=== PATIENT | female | born 1985 | race Caucasian/White ===

== ENCOUNTER 2020-07-29 12:01 | Emergency (ER) | payer BC ==
[~2020-07-29] VITALS: Ht 165.1 cm; Wt 57.9 kg
[2020-07-29] MEDS ORDERED: ONDANSETRON PF 4 MG/2 ML VIAL. IVP ONE (12:45)
[2020-07-29] MEDS ORDERED: KETOROLAC 30 MG/ML VIAL. IVP ONE (12:45)
[2020-07-29] MEDS ORDERED: IV NORMAL SALINE 1,000ML 1,000 ML IV ONE (12:45)
--- NOTE | 2020-07-29 13:04 | PHYS DOC ---
Past History Past Medical History: Alcoholism, Depression, Diverticulitis, Hepatitis, UTI (JOYCELYN FOWLER APRN) Past Surgical History: (JOYCELYN FOWLER APRN) Alcohol Use: Sober Social History Narrative: IV METHAMPHETAMINE IN PAST-OUT OF REHAB X 60 DAYS WO USE (JANETHJOYCELYN Mancilla APRN) Adult General Chief Complaint Chief Complaint: ABDOMINAL PAIN HPI HPI Patient is a 35-year-old female who presents to the emergency department reporting 3 days ago she started to feel constipated, has not had a bowel movement in 4 days, states she usually goes every day. Patient states she started having lower left and lower right pelvic pains with vaginal discharge 3 days ago that is malodorous and pinkish in color reporting she just finished her menstrual cycle normal duration of flow 3 days ago as well. Patient denies STI concerns reporting monogamous sexual relationship however does have unprotected sex. Patient reports the last time she had a discharge like this she was treated for chlamydia. Patient denies vaginal itching or sores to her vagina or periarea. Patient also states she has a history of diverticulitis, was admitted to [facility] on December 2019 in which she also was diagnosed with a abscess between her colon and her ovary and had a surgical repair with a drain. Patient reports she sees a GI specialist at but cannot recall his name, had a colonoscopy scheduled but had to miss her appointment related to inpatient drug rehab in which she spent 18 days at [facility] and rehab in [facility] for IV meth abuse. Patient reports her last IV meth use was 60 days ago. Patient states she has been clean since then. Patient patient reports she smokes cigarettes, states she used to drink alcohol but has been dry for the past 60 days. Patient reports her abdomen pain a constant 8 out of 10 that increases when she moves around or sits up or ambulates. Patient describes her pain as a stabbing achy pain that throbs most of the time. Patient denies nausea, however reported vomiting times once because of her severe pain yesterday. Patient denies any nausea or vomiting since yesterday. Patient denies chest pains, shortness of breath, recent fever or chills, chest congestion or nasal congestion. Patient denies any increased thirst or increased urination. Patient reports an allergy to codeine, states her only prescription medication is Zoloft. Patient states she has not taken any [id number] pain medications for this exacerbation of pain 3 days ago. Patient denies any other physical complaints or physical concerns. (JOYCELYN FOWLER APRN) Review of Systems Review of Systems 14 body systems of review of systems have been reviewed. See HPI for pertinent positives and negative responses, otherwise all other systems are negative, nonpertinent or noncontributory. (JOYCELYN FOWLER APRN) Current Medications Current Medications Current Medications Medications (Trade) Dose Ordered Sig/Ashu Start Time Stop Time Status Last Admin Dose Admin Ketorolac Tromethamine (Toradol 30mg Vial) 30 mg 1X ONCE 07/29/20 12:45 07/29/20 12:46 UNV 07/29/20 12:56 30 MG Ondansetron HCl (Zofran) 4 mg 1X ONCE 07/29/20 12:45 07/29/20 12:46 UNV 07/29/20 12:55 4 MG Sodium Chloride 1,000 ml @ 1,000 mls/hr 1X ONCE 07/29/20 12:45 07/29/20 13:44 UNV 07/29/20 12:53 1,000 MLS/HR (JOYCELYN FOWLER APRN) Allergies Allergies Allergies Coded Allergies Type Severity Reaction Last Updated Verified codeine Allergy Unknown 07/29/20 Yes (JOYCELYN FOWLER APRN) Physical Exam Physical Exam Constitutional: Well developed, well nourished, no acute distress, non-toxic appearance. 35-year-old female in no apparent distress. HENT: Normocephalic, atraumatic. Eyes: Conjunctiva normal, no discharge. Neck: Normal range of motion, no tenderness, supple, no stridor. No meningismus signs, no nuchal rigidity. Cardiovascular: No cyanosis appreciated, distal cap refill less than 2 seconds. Lungs & Thorax: Patient is in no respiratory distress, no audible adventitious lung sounds appreciated. Abdomen: Bowel sounds normal, soft, no masses, no pulsatile masses. Tenderness to palpation left and right lower pelvic area, negative McBurney's point tenderness, negative psoas sign, negative Victor sign. No areas of ecchymosis or skin color changes of the abdomen. No surgical scars appreciated. Skin: Warm, dry, no erythema, no rash. Back: No tenderness, no CVA tenderness. Extremities: No tenderness, no cyanosis, no clubbing, ROM intact, no edema. Neurologic: Alert and oriented X 3, normal motor function, normal sensory function, no focal deficits noted. Psychologic: Affect normal, judgement normal, mood normal. : Pelvic examination performed with female ED registered nurse escort at bedside, no rashes or lesions appreciated to the vagina or external vaginal area or pubic area, the pubic area is shaved, no excoriations appreciated. Speculum exam revealed thick grayish white-colored discharge, GC and Chlamydia cultures obtained, wet prep obtained, the vaginal vault was not erythematous or excoriated. Bimanual exam with cervical motion tenderness, right-sided adnexal tenderness with marked left-sided adnexal tenderness. Patient pushed herself away from bimanual exam when examining the left adnexal area. (JOYCELYN FOWLER APRN) Current Patient Data Vital Signs Vital Signs Date Time Temp Pulse Resp B/P (MAP) Pulse Ox O2 Delivery O2 Flow Rate FiO2 07/29/20 12:10 98.4 82 20 127/65 (85) 98 Room Air Lab Results Laboratory Tests Test 07/29/20 12:26 POC Urine HCG, Qualitative hcg negative (Negative) (JOYCELYN FOWLER APRN) EKG EKG [] (JOYCELYN FOWLER APRN) Radiology/Procedures Radiology/Procedures PATIENT: AMY COLEY MACCOUNT: [id number] : 1985 LOCATION: ER AGE: 35 SEX: F EXAM STATUS: REG ER ORD. PHYSICIAN: JOYCELYN FOWLER APRN REASON: Right and left-sided adnexal pain PROCEDURE: PELVIS COMPLETE US PELVIS COMPLETE: 07/29/2020 1:50 PM INDICATION: 35 years old Female. Right and left-sided adnexal pain. COMPARISON: None. TECHNIQUE: Transabdominal and transvaginal sonographic evaluation of the pelvis was performed. Grayscale, color Doppler and spectral waveform analysis were utilized. FINDINGS: UTERUS: Size: 12.4 x 6.6 x 2.7 cm. Masses: None. Endometrium: 5 mm. No suspicious vascularity is identified. IUD is present in appropriate position. RIGHT OVARY: 5.0 x 2.7 x 4.0 cm. Dominant follicle in the right ovary measures 3.4 cm. LEFT OVARY: 4.6 x 3.1 x 2.5 cm. There is a cyst with internal echoes measuring 2.4 cm the left ovary. No definite suspicious vascularity. Arterial and venous waveform are identified within the ovaries bilaterally at the time of imaging. FREE FLUID: None. URINARY BLADDER: Unremarkable. IMPRESSION: Perfusion is noted to the ovaries bilaterally at the time of imaging. Cyst in the left ovary with internal echoes measures 2.4 cm. In the absence of elevated beta hCG, consideration may be given for an endometrioma versus hemorrhagic cyst. 2-3 month follow-up pelvic ultrasound is recommended to ensure resolution. IUD is present. Electronically signed by: Blanca Mendoza MD (07/29/2020 2:23 PM) [id number] DICTATED AND SIGNED BY: BLANCA MENDOZA MD DATE: 07/29/20 1419 CC: JOYCELYN FOWLER APRN; KALANI MIDDLETON DO; AVELINA ANGELO DO ~MTH0 0 (JOYCELYN FOWLER APRN) Heart Score C/O Chest Pain: No Risk Factors: Risk Factors: DM, Current or recent (<one month) smoker, HTN, HLP, family history of CAD, obesity. Risk Scores: Risk Factors: DM, Current or recent (<one month) smoker, HTN, HLP, family history of CAD, obesity. (JOYCELYN FOWLER APRN) Course & Med Decision Making Course & Med Decision Making Pertinent Labs and Imaging studies reviewed. (See chart for details) 35-year-old female, vital signs reviewed, resents emergency department with complaints of low pelvic pain for the past 3 days. Physical examination concerning for bacterial vaginosis versus other STI, patient had right-sided adnexal tenderness with marked left-sided adnexal tenderness concerning for ovarian torsion and patient's reported history of surgical abscess of the left ovary, will order sonogram to rule out. Patient is nontoxic in appearance, low likelihood of diverticulitis. Will review labs pending decision on CT abdomen pelvis. Patient states she has been 60 days clean from methamphetamines and alcohol, there were no track lock appreciated to her arms however was a very difficult peripheral IV access, will order urine drug screen, CBC, BMP, lipase, urinalysis assay, urine test, saline lock, 1 L normal saline, 4 mg Zofran, 30 mg IV ketorolac. Pelvic sonogram concerning for ovarian cyst on the left, no concerns for ovarian torsion or other infectious process. Patient wet prep concerning for bacterial vaginosis, will treat with 500 mg p.o. Flagyl with Rx twice daily x7 days, with patient's history of STIs, will empirically treat with 500 mg Rocephin in the ED today, will send home with prescription for doxycycline hyclate twice daily x7 days, patient was not however her urine was infected, will treat with Keflex Rx 500 mg p.o. twice daily x7 days, patient did complain of constipation problems, will recommend MiraLAX [id number] for constipation. We will also give prescription for Diflucan 150 mg tablet if patient has symptoms of vaginal yeast infection after antibiotic regimens. Patient's urine drug screen positive for marijuana and methamphetamines, question patient about urine drug screen results, patient revealed that she did use IV methamphetamine yesterday and was caught by her boyfriend, offered patient help with methamphetamine abuse, patient states that her boyfriend has taken her to a drug rehab facility tomorrow. Discussed findings with patient, strict follow-up wit h primary care call Friday for appointment, patient states that she will follow- up with her primary care physician Dr. 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 Patient gave verbal understanding of discharge home instructions, follow-up with primary care physician call Friday for appointment, home prescription use, return ER precautions and concerns, patient was discharged home without incident. Diagnosis left ovarian cyst, bacterial vaginosis, sexually transmitted infections, urinary tract infection, methamphetamine abuse, history of alcohol abuse, constipation. (JOYCELYN FOWLER APRN) Course & Med Decision Making I oversaw on the above date of service of this patient and discussed the care with the GRAV[employer] SET UP OPERATOR. I agree with the findings, plan of care, and disposition as documented. Electronically signed, Kalani Middleton DO (KALANI MIDDLETON DO) Joseluis Disclaimer Dragon Disclaimer This electronic medical record was generated, in whole or in part, using a voice recognition dictation system. (JOYCELYN FOWLER APRN) Departure Departure: Impression: Primary Impression: Left ovarian cyst Additional Impressions: Sexually transmitted disease Bacterial vaginosis Constipation Methamphetamine abuse, episodic History of alcohol abuse Disposition: HOME / SELF CARE / HOMELESS Condition: GOOD Referrals: AVELINA ANGELO DO (PCP) Patient Instructions: Bacterial Vaginosis, Constipation, Adult, Ovarian Cyst, Sexually Transmitted Disease Additional Instructions: You were seen today in the emergency department for low pelvic pain. A sonogram was performed of your pelvis and revealed a ovarian cyst on the left, please follow-up with your primary care physician for reevaluation of your ongoing pelvic cyst. Your pelvic examination was concerning for sexually transmitted diseases, cultures were sent, I am empirically treating you for gonorrhea chlamydia, you received 500 mg Rocephin in the ED today, is very important that you fill the prescription for doxycycline and take it as directed, you also have bacterial vaginosis, please fill your prescription for Flagyl and take it as directed, you also have a urinary tract infection, please fill your prescription for Keflex and take it as directed. We discussed your constipation problems, you may use [id number] MiraLAX as directed for constipation. I am also prescribing you a 150 mg Diflucan tablet in the event you experience yeast infection symptoms. If you do not there is no need to fill and take this prescription. You had indicated that you had a relapse yesterday with methamphetamines, I offered you help with your methamphetamine abuse, you have i ndicated that your boyfriend is assisting you with taking you to a rehab place for help. I encourage you to seek substance abuse help. Please return to the emergency department for worsening symptoms or other concerns. EMERGENCY DEPARTMENT GENERAL DISCHARGE INSTRUCTIONS Thank you for coming to [facility] (ED) today and trusting us with you care. We trust that you had a positivie experience in our Emergency Department. If you wish to speak to the department management, you may call the director at [phone]. YOUR FOLLOW UP INSTRUCTIONS ARE FOLLOWS: 1. Do you have a private Doctor? If you do not have a private doctor, please ask for a resource list of physicians or clinics that may be able to assist you with follow up care. 2. The Emergency Physician has interpreted your x-rays. The X-Ray specialist will also review them. If there is a change in the findings, you will be notified in 48 hours when at all possible. 3. A lab test or culture has been done, your results will be reviewed and you will be notified if you need a change in treatment. ADDITIONAL INSTRUCTIONS AND INFORMATION: 1. Your care today has been supervised by a physician who is specially trained in emergency care. Many problems require more than one evaluation for a complete diagnosis and treatment. We recommend that you schedule your follow up appointment as recommended to ensure complete treatment of you illness or injury. If you are unable to obtain follow up care and continue to have a problem, or if your condition worsens, we recommend that you return to the ED. 2. We are not able to safely determine your condition over the phone nor are we able to give sound medical advice over the phone. For these safety reasons, if you call for medical advice we will ask you to come to the ED for further evaluation. 3. If you have any questions regarding these discharge instructions please call the ED at [phone]. SAFETY INFORMATION: In the interest of safety, wellness, and injury prevention; we encourage you to wear your sealbelt, if you smoke; quite smoking, and we encourage family to use a protective helmet for bicycling and other sporting events that present an increased risk for head injury. IF YOUR SYMPTOMS WORSEN OR NEW SYMPTOMS DEVELOP, OR YOU HAVE CONCERNS ABOUT YOUR CONDITION; OR IF YOUR CONDITION WORSENS WHILE YOU ARE WAITING FOR YOUR FOLLOW UP YESSI OINTMENT; EITHER CONTACT YOUR PRIMARY CARE DOCTOR, THE PHYSICIAN WHOSE NAME AND NUMBER YOU WERE GIVEN, OR RETURN TO THE ED IMMEDIATELY. Scripts Fluconazole (DIFLUCAN) 150 Mg Tablet 1 TAB PO ONCE for IF NEEDED FOR YEAST INFECTION , #1 TAB 1 Refill Prov: JOYCELYN FOWLER APRN 07/29/20 Metronidazole (FLAGYL) 500 Mg Tablet 1 TAB PO BID for BACTERIAL VAGINOSIS, #14 TAB 0 Refills Prov: JOYCELYN FOWLER APRN 07/29/20 Cephalexin (CEPHALEXIN) 500 Mg Capsule 1 CAP PO BID for UTI for 7 Days, #14 CAP 0 Refills Prov: JOYCELYN FOWLER APRN 07/29/20 Doxycycline Hyclate (DOXYCYCLINE HYCLATE) 100 Mg Capsule 1 CAP PO BID for sti, #14 CAP 0 Refills Prov: JOYCELYN FOWLER APRN 07/29/20 Problem Qualifiers Additional Impressions: Constipation Constipation type: unspecified constipation type Qualified Codes: K59.00 - Constipation, unspecified JOYCELYN FOWLER APRN Jul 29, 2020 13:04 KALANI MIDDLETON DO Aug 01, 2020 18:36
[2020-07-29 13:07] LABS: BASO # 0.1 x10^3/uL (0.0-0.2); BASO % 1 % (0-3); EOS % 0 % (0-3); HEMATOCRIT 37.3 % (36.0-47.0); HEMOGLOBIN 12.9 g/dL (12.0-15.5); LYMPH # 1.6 x10^3/uL (1.0-4.8); LYMPH % 13 % (24-48); MEAN CORPUSCULAR HEMOGLOBIN 35 pg (25-35); MEAN CORPUSCULAR HGB CONC 35 g/dL (31-37); MEAN CORPUSCULAR VOLUME 100 fL (79-100); MONO # 0.8 x10^3/uL (0.0-1.1); MONO % 7 % (0-9); NEUT # 9.4 x10^3uL (1.8-7.7); NEUT % 79 % (31-73); PLATELET COUNT 236 x10^3/uL (140-400); RED BLOOD COUNT 3.71 x10^6/uL (3.50-5.40); RED CELL DISTRIBUTION WIDTH 12.7 % (11.5-14.5); WHITE BLOOD COUNT 11.9 x10^3/uL (4.0-11.0)
[2020-07-29 13:08] LABS: CALCIUM 9.2 mg/dL (8.5-10.1); CREATININE 0.9 mg/dL (0.6-1.0); GFR 70.8; POTASSIUM 3.8 mmol/L (3.5-5.1)
[2020-07-29 13:14] LABS: ALBUMIN 3.8 g/dL (3.4-5.0); ALBUMIN/GLOBULIN RATIO 0.9 (1.0-1.7); TOTAL BILIRUBIN 1.3 mg/dL (0.2-1.0); TOTAL PROTEIN 7.9 g/dL (6.4-8.2)
[2020-07-29 13:16] LABS: BARBITURATES NEG (NEG); BENZODIAZEPINES NEG (NEG); CANNABINOIDS POS (NEG); COCAINE NEG (NEG); METHADONE NEG (NEG); OPIATES NEG (NEG); PHENCYCLIDINE NEG (NEG)
[2020-07-29 13:17] LABS: AMPHETAMINE/METHAMPHETAMINE POS (NEG)
[2020-07-29 13:23] LABS: BILIRUBIN,URINE MOD (NEG); CLARITY,URINE HAZY; COLOR,URINE AMBER; GLUCOSE,URINE NEG (NEG); NITRITE,URINE POS (NEG); UROBILINOGEN,URINE 0.2 mg/dL (0.2 mg/dL)
[2020-07-29 13:24] LABS: BACTERIA,URINE MOD /HPF (0-FEW); SQUAMOUS EPITHELIAL CELL,UR MOD /LPF
--- NOTE | 2020-07-29 14:25 | RAD ---
US PELVIS COMPLETE: 07/29/2020 1:50 PM INDICATION: 35 years old Female. Right and left-sided adnexal pain. COMPARISON: None. TECHNIQUE: Transabdominal and transvaginal sonographic evaluation of the pelvis was performed. Ashely philipp, color Doppler and spectral waveform analysis were utilized. FINDINGS: UTERUS: Size: 12.4 x 6.6 x 2.7 cm. Masses: None. Endometrium: 5 mm. No suspicious vascularity is identified. IUD is present in appropriate position. RIGHT OVARY: 5.0 x 2.7 x 4.0 cm. Dominant follicle in the right ovary measures 3.4 cm. LEFT OVARY: 4.6 x 3.1 x 2.5 cm. There is a cyst with internal echoes measuring 2.4 cm the left ovary . No definite suspicious vascularity. Arterial and venous waveform are identified within the ovaries bilaterally at the time of imaging. FREE FLUID: None. URINARY BLADDER: Unremarkable. IMPRESSION: Perfusion is noted to the ovaries bilaterally at the time of imaging. Cyst in the left ovary with internal echoes measures 2.4 cm. In the absence of elevated beta hCG, con sideration may be given for an endometrioma versus hemorrhagic cyst. 2-3 month follow-up pelvic ultra sound is recommended to ensure resolution. IUD is present. Electronically signed by: Aisha Olivo MD (07/29/2020 2:23 PM) [id number]
[2020-07-29] MEDS ORDERED: NORMAL SALINE IV ONE (14:30)
[2020-07-29] MEDS ORDERED: CEFTRIAXONE SODIUM IV ONE (14:30)
[2020-07-29] MEDS ORDERED: DOXYCYCLINE HYCLATE 100 MG TABLET PO ONE (14:30)
[2020-07-29] MEDS ORDERED: metroNIDAZOLE 500 MG TABLET PO ONE (15:15)
[2020-07-29] MEDS ORDERED: METR500T PO (15:19)
[2020-07-29] MEDS ORDERED: DOXY100C2 PO (15:19)
[2020-07-29] MEDS ORDERED: CEPH500C PO (15:19)
[2020-07-29] MEDS ORDERED: FLUC150T PO (15:19)
[2020-07-29 15:28] VITALS: BP 103/51
[2020-07-31 13:27] LABS: CHLAMYDIA PROBE Negative (Negative)
== END 2020-07-29 15:30 | disposition home or self-care (01) ==
LOC: ER 12:01
DX: N83.202 Unspecified ovarian cyst, left side (principal); N76.0 Acute vaginitis; A64 Unspecified sexually transmitted disease; F15.10 Other stimulant abuse, uncomplicated; F10.10 Alcohol abuse, uncomplicated; Z88.5 Allergy status to narcotic agent
CPT/HCPCS: 36415; 76856; 80053; 80307; 81001; 81025; 83690; 85025; 87086; 87491; 87591; 96361; 96374; 96375; 99284; J0696; J1885; J2405; J7030; Q0111; 87077